=== PATIENT | male | born 1950 | race American Indian/Alaskan Native ===

== ENCOUNTER 2020-12-28 10:31 | Outpatient (CLI) | payer MEDICARE, OTHER ==
--- NOTE | 2020-12-28 11:39 | XRay Report ---
XR spine lumbosacral 4+V INDICATION / CLINICAL INFORMATION: BACK PAIN. COMPARISON: None available. FINDINGS: BONES/JOINT(S): There are transitional features at lumbosacral junction . There is minimal retrolisth esis of L4 on L5, less so at L5-S1. Posterior vertebral body alignment is otherwise preserved. There is moderate to severe disc space height loss at L4-L5. Mild disc space height loss is also present at L3-L4. Multilevel marginal osteophytes are present, most pronounced at L4-L5. There is moderate lowe r lumbar facet arthropathy. PARASPINAL SOFT TISSUES:No significant abnormality. ADDITIONAL FINDINGS: None. IMPRESSION: Moderate lower lumbar spondylosis, most pronounced at L4-L5. No acute process identified. Signer Name: Erick Rausch MD Signed: 12/28/2020 11:34 AM Workstation Name: [id number]
== END 2020-12-28 10:32 | disposition home or self-care (01) ==
LOC: XRAY 10:31
PROVIDERS: ATTEND Orthopaedic Surgery
DX: M47.816 Spondylosis without myelopathy or radiculopathy, lumbar region (principal); M25.78 Osteophyte, vertebrae; M54.40 Lumbago with sciatica, unspecified side
CPT/HCPCS: 72110

== ENCOUNTER 2021-01-06 07:21 | Outpatient (CLI) | payer MEDICARE, OTHER ==
--- NOTE | 2021-01-06 09:13 | Cat Scan Report ---
CT LUMBAR SPINE WITHOUT CONTRAST INDICATION: LUMBAGO WITH SCIATICA, UNSPECIFIED SIDE. TECHNIQUE: Axial imaging performed through the lumbar spine without the use of contrast. Sagittal a nd coronal reconstructed images were also reviewed. All CT scans at this location are performed usin g CT dose reduction for ALARA by means of automated exposure control. COMPARISON: Lumbar spine films dated 12/28/2020 FINDINGS: Alignment: Spinal alignment is normal. Bones: There is no acute osseous abnormality. No suspicious bony lesion. Multiple Schmorl's nodes a re noted along the endplates at L2-3, L3-4 and L4-5. Soft tissues: No acute or significant incidental soft tissue abnormality. L1-2: No significant abnormality. L2-3: Mild disc space narrowing. A moderate circumferential bulging disc is identified which effaces the anterior thecal sac. Mild central canal narrowing measures 7 mm in AP dimension. Bilateral neural foraminal narrowing is estimated at 50%. L3-4: A mild to moderate circumferential bulging disc is identified which effaces the anterior thecal sac. Mild central canal narrowing measures 7-8 mm in AP dimension. Bilateral neural foraminal narrow ing is estimated at 25%. L4-5: Advanced disc space narrowing with endplate spurring and vacuum phenomenon. A moderate circumfe rential spur disc complex is present. There is mild hypertrophy of ligamentum flavum. Mild to moderat e central canal narrowing measures 8 mm in AP dimension. Bilateral neural foraminal narrowing is estrella mated at 75%. L5-S1: No significant abnormality. IMPRESSION: No acute abnormality is appreciated. Moderate multilevel lumbar spondylosis as described. L4-5 appears to be the most affected level. See above. Signer Name: Marlon Bernstein Jr, MD Signed: 01/06/2021 9:09 AM Workstation Name: [id number]
== END 2021-01-06 07:22 | disposition home or self-care (01) ==
LOC: CT 07:21
PROVIDERS: ATTEND Orthopaedic Surgery
DX: M54.40 Lumbago with sciatica, unspecified side (principal); M47.816 Spondylosis without myelopathy or radiculopathy, lumbar region; M51.26 Other intervertebral disc displacement, lumbar region; M48.061 Spinal stenosis, lumbar region without neurogenic claudication; M51.46 Schmorl's nodes, lumbar region
CPT/HCPCS: 72131

== ENCOUNTER 2021-02-16 10:02 | Day surgery (SDC) | payer MEDICARE, OTHER ==
[~2021-02-16 10:02] MED LIST: BUPIVACAINE/PF (0.5%) 5 MG/1 ML 30 ML VIAL INFILTRATI ONE; LIDOCAINE (1%) 10 MG/1 ML VIAL 20 ML MDV ONE
[2021-02-16 11:07] VITALS: BP 143/71
[2021-02-16] MEDS ORDERED: LIDOCAINE (1%) 10 MG/1 ML VIAL 20 ML MDV ONE (13:33)
[2021-02-16] MEDS ORDERED: methylPREDNISolone ACETATE 40 MG/1 ML INJ ONE (13:43)
--- NOTE | 2021-02-16 14:00 | Procedure Note ---
Date of procedure: 02/16/21 Pre-op diagnosis: Chronic low back pain Post-op diagnosis: same Procedure: Lumbar facet blocks at left L2 through L5 Procedure The patient was brought to the OR and placed prone onto the OR table, the lumbar spine was prepped and draped in the usual sterile manner. A timeout procedure was done to identify the patient and the correct levels of nerve block being performed the patient was awake during the procedure. Using C-arm fluoroscopy the L5 through L2 levels were visualized in both the PA and 45 oblique views 20-gauge spinal needles were inserted again under direct fluoroscopic control after placing the spinal needles and the correct position and Marcaine injection was performed using 1% without epinephrine. The patient tolerated the procedure and no complications Anesthesia: local Surgeon: RADHA DE LA ROSA Estimated blood loss: minimal Pathology: none Condition: stable Disposition: observation
[2021-02-16] MEDS ORDERED: LIDOCAINE (1%) 10 MG/1 ML VIAL 20 ML MDV INFILTRATI ONE (14:08)
[2021-02-16] MEDS ORDERED: BUPIVACAINE/PF (0.25%) 2.5 MG/ML 30 ML VIAL INFILTRATI ONE (14:08)
--- NOTE | 2021-02-16 16:25 | XRay Report ---
Lumbar spine 2 views INDICATION: Low back pain IMPRESSION: Multiple left-sided L2-L3, L3-L4, L4-L5 and L5-S1 facets were targeted for several percut aneous needles Fluoroscopy time: 34 seconds. Fluoroscopic images: 2. Signer Name: Bud Harrington MD Signed: 02/16/2021 4:21 PM Workstation Name: [id number]
== END 2021-02-16 13:56 | disposition home or self-care (01) ==
LOC: OR 10:02
PROVIDERS: ATTEND Orthopaedic Surgery
DX: M54.5 Low back pain (principal); G89.29 Other chronic pain; M47.816 Spondylosis without myelopathy or radiculopathy, lumbar region; E78.00 Pure hypercholesterolemia, unspecified; I10 Essential (primary) hypertension; K21.9 Gastro-esophageal reflux disease without esophagitis; M19.90 Unspecified osteoarthritis, unspecified site; Z72.89 Other problems related to lifestyle; Z79.899 Other long term (current) drug therapy; Z87.891 Personal history of nicotine dependence; Z98.890 Other specified postprocedural states
CPT/HCPCS: 64493; 64494; 64495; 72100; J1030

== ENCOUNTER 2021-08-09 09:36 | Outpatient (CLI) | payer MEDICARE, OTHER ==
[2021-08-09 10:25] LABS: Chol/HDL Ratio 2.44 %
[2021-08-09 10:32] LABS: Basophils % (Auto) 1.1 % (0.0-1.8); Eosinophils # (Auto) 0.1 K/mm3 (0.0-0.4); Eosinophils % (Auto) 2.8 % (0.0-4.3); Hematocrit 36.7 % (35.5-45.6); Hemoglobin 12.7 gm/dl (11.8-15.2); Lymphocytes # (Auto) 1.1 K/mm3 (1.2-5.4); Lymphocytes % (Auto) 27.7 % (13.4-35.0); Mean Corpuscular HGB Conc 35 % (32-34); Mean Corpuscular Volume 91 fl (84-94); Monocytes # (Auto) 0.3 K/mm3 (0.0-0.8); Monocytes % (Auto) 6.3 % (0.0-7.3); Platelet Count 273 K/mm3 (140-440); Red Blood Count 4.05 M/mm3 (3.65-5.03); Red Cell Distribution Width 14.5 % (13.2-15.2)
== END 2021-08-09 09:37 | disposition home or self-care (01) ==
LOC: LAB 09:36
PROVIDERS: ATTEND Internal Medicine
DX: Z13.29 Encounter for screening for other suspected endocrine disorder (principal); Z00.00 Encounter for general adult medical examination without abnormal findings; E78.5 Hyperlipidemia, unspecified; R73.9 Hyperglycemia, unspecified
CPT/HCPCS: 36415; 80061; 82728; 83036; 83540; 85025